=== PATIENT | female | born 1980 | race Caucasian/White ===

== ENCOUNTER 2019-03-27 19:44 | Emergency (ER) | payer SELFPAY ==
[~2019-03-27] VITALS: Ht 165.1 cm; Wt 72.6 kg
[2019-03-27 20:22] LABS: BASOPHILS ABSOLUTE AUTO 0.08 K/mm3 (0.00-0.23); BASOPHILS PERCENT AUTO 1 % (0-2); EOSINOPHILS ABSOLUTE AUTO 0.37 K/mm3 (0.00-0.68); EOSINOPHILS PERCENT AUTO 4 % (0-6); Hematocrit 37.8 % (33.0-51.0); Hemoglobin 12.2 g/dL (11.5-16.0); IMMATURE GRAN ABSOLUTE AUTO 0.02 K/mm3 (0.00-0.10); IMMATURE GRAN PERCENT AUTO 0 % (0-1); LYMPHOCYTES ABSOLUTE AUTO 3.29 K/mm3 (0.84-5.20); LYMPHOCYTES PERCENT AUTO 31 % (21-46); MONOCYTES ABSOLUTE AUTO 0.85 K/mm3 (0.16-1.47); MONOCYTES PERCENT AUTO 8 % (4-13); Mean Corpuscular HGB 26.5 pg (26.0-34.0); Mean Corpuscular HGB Conc 32.3 g/dL (31.5-36.5); Mean Corpuscular Volume 82 fL (80-100); Mean Platelet Volume 9.5 fL (9.1-12.4); NEUTROPHILS ABSOLUTE AUTO 5.91 K/mm3 (1.96-9.15); NEUTROPHILS PERCENT AUTO 56 % (41-73); Platelet Count 304 K/mm3 (150-400); RDW Coefficient Variation 12.9 % (11.7-14.2); RDW Standard Deviation 38.5 fL (35.1-46.3); White Blood Cell Count 10.52 K/mm3 (4.00-11.30)
[2019-03-27 20:47] LABS: Alanine Aminotransfer (ALT/SGP 23 U/L (12-78); Albumin, Blood 3.3 g/dL (3.4-5.0); Albumin/Globulin Ratio 0.9 (0.8-1.8); Alk Phos 64 U/L (50-136); Anion Gap 6 mmol/L (6-16); Aspartate Aminotrans (AST/SGOT 13 U/L (12-37); Bilirubin, Total 0.2 mg/dL (0.1-1.0); Blood Urea Nitrogen 8 mg/dL (8-24); Bun/Creatinine Ratio 12.9 (12.0-20.0); CO2, Blood 29 mmol/L (21-32); Calcium, Blood 8.6 mg/dL (8.5-10.1); Chloride, Blood 104 mmol/L (98-108); Creatinine, Blood 0.62 mg/dL (0.40-1.00); Globulin, Blood 3.8 g/dL (2.2-4.0); Glomerular Filtration Rate >60 (60-); Glucose, Blood 125 mg/dL (70-99); Potassium, Blood 4.2 mmol/L (3.5-5.5); Sodium, Blood 139 mmol/L (136-145); Total Protein, Blood 7.1 g/dL (6.4-8.2)
[2019-03-27] MEDS ORDERED: IBUP600 PO (22:52)
[2019-03-27] MEDS ORDERED: Augmentin 875-1 EACH PO (22:52)
== END 2019-03-28 00:26 | disposition home or self-care (01) ==
LOC: ER 19:44
PROVIDERS: Emergency Medicine
DX: S62.615A Displaced fracture of proximal phalanx of left ring finger, initial encounter for closed fracture (principal); S62.366A Nondisplaced fracture of neck of fifth metacarpal bone, right hand, initial encounter for closed fracture; F17.200 Nicotine dependence, unspecified, uncomplicated; W54.0XXA Bitten by dog, initial encounter
CPT/HCPCS: 29125; 36415; 73120; 73130; 80053; 83605; 85025; 87040; 99283-25; A9270

== ENCOUNTER → 2022-01-12 | Outpatient (CLI) | payer OTHER ==
[~2022-01-12] MED LIST: Augmentin 875-1 EACH PO; IBUP600 PO
[2022-01-15 01:07] LABS: CHLAMYDIA TRACHOMATIS, NAA Negative (Negative)
== END | disposition home or self-care (01) ==
LOC: LAB SHORT 14:37
PROVIDERS: Advanced Practice Midwife
DX: Z11.3 Encounter for screening for infections with a predominantly sexual mode of transmission (principal); O09.93 Supervision of high risk pregnancy, unspecified, third trimester
CPT/HCPCS: 87081; 87086; 87150; 87491; 87591

== ENCOUNTER 2022-02-09 20:22 | Inpatient (IN) | payer OTHER ==
[~2022-02-09] VITALS: Ht 165.1 cm; Wt 92.0 kg
[2022-02-10 00:06] LABS: Hematocrit 28.5 % (33.0-51.0); Hemoglobin 9.1 g/dL (11.5-16.0); Mean Corpuscular HGB 24.9 pg (26.0-34.0); Mean Corpuscular HGB Conc 31.9 g/dL (31.5-36.5); Mean Corpuscular Volume 78 fL (80-100); Mean Platelet Volume 11.2 fL (9.1-12.4); Platelet Count 294 K/mm3 (150-400); RDW Coefficient Variation 14.6 % (11.7-14.2); RDW Standard Deviation 41.5 fL (35.1-46.3); Red Blood Cell Count 3.65 M/mm3 (3.80-5.20)
[2022-02-10 00:08] LABS: BASOPHILS ABSOLUTE AUTO 0.05 K/mm3 (0.00-0.23); BASOPHILS PERCENT AUTO 0 % (0-2); EOSINOPHILS ABSOLUTE AUTO 0.31 K/mm3 (0.00-0.68); EOSINOPHILS PERCENT AUTO 3 % (0-6); IMMATURE GRAN ABSOLUTE AUTO 0.05 K/mm3 (0.00-0.10); IMMATURE GRAN PERCENT AUTO 0 % (0-1); LYMPHOCYTES ABSOLUTE AUTO 3.37 K/mm3 (0.84-5.20); LYMPHOCYTES PERCENT AUTO 29 % (21-46); MONOCYTES ABSOLUTE AUTO 0.81 K/mm3 (0.16-1.47); MONOCYTES PERCENT AUTO 7 % (4-13); NEUTROPHILS ABSOLUTE AUTO 6.94 K/mm3 (1.96-9.15); NEUTROPHILS PERCENT AUTO 60 % (41-73); White Blood Cell Count 11.53 K/mm3 (4.00-11.30)
--- NOTE | 2022-02-10 12:56 | NUR ---
02/10/22 1256 Carol Wright VIABLE MALE BORN 1227; WT 3350 GMS 7LBS [id number]; LENGTH 20IN; HEAD 14 IN; CHEST 13 IN; CORD BLOOD COLLECTED SENT WITH Rach LOPEZ RN.
--- NOTE | 2022-02-10 17:50 | NUR ---
LATE NOTE ENTRY: DR. NOWAK CALLED AND NOTIFIED OF PATIENTS' POOR PAIN CONTROL. PATIENT DID NOT WANT TO TAKE PAIN MEDICATION DUE TO . MEDICATION EDUCATION GIVEN TO PATIENT ON INTRODUCTION TO THE BREAST MILK AND ALSO ABOUT STAYING ON TOP OF PAIN CONTROL. PT DOES NOT WANT NB TO CRY. NB STARTED CRYING AND PT JUMPED UP ONTO HER KNEES TO MACHINE BILLER NB. PT STRONGLY URGED TO CALL FOR HELP AND NOT MAKE SUDDENT MOVEMENTS LIKE THAT. WHEN RN OUT OF ROOM, PT PROCEEDED TO GET TO HER KNEES AGAIN TO MACHINE BILLER NB OUT OF OPEN CRIB. PT ALSO CONTINUE TO TAKE OFF HER BINDER AND REPLACE IT HERSELF. PT ENCOURAGED TO ALLOW STAFF TO ASSIST WITH PLACING BINDER CORRECTLY. PT SHOWING SIGNS OF MAJOR ANXIETY. PT'S PAIN WAS ALSO OUT OF CONTROL AFTER ALL THE ACTIVITY. SHE DID ALLOW RN TO GIVE 1 G TYLENOL AND 10MG JAKE PO BUT WITH ALL THE ACTIVITY, PAIN IS NOT CONTROLLED. DR. NOWAK NOTIFIED OF ALL OF THE ABOVE AND REQUEST FOR WAITER/WAITRESS TAVERN PUMP. DR. NOWAK AGREED WAITER/WAITRESS TAVERN WOULD BE BENEFICIAL. WAITER/WAITRESS TAVERN ORDERS PLACED BY DR. ARRIAZA EXPLAINED HOW TO USE WAITER/WAITRESS TAVERN PUMP AND ENCOURAGED TO CALL FOR HELP WITH ASSISTING PT HANDING NB TO PT.
--- NOTE | 2022-02-11 01:46 | NUR ---
0230 [facility]PS called due to late care. They will call unit during the day.
--- NOTE | 2022-02-11 05:54 | NUR ---
0430 Patient refused vital signs 0550 Patient refused lab draw
[2022-02-11 14:19] LABS: BASOPHILS ABSOLUTE AUTO 0.05 K/mm3 (0.00-0.23); BASOPHILS PERCENT AUTO 0 % (0-2); EOSINOPHILS ABSOLUTE AUTO 0.16 K/mm3 (0.00-0.68); EOSINOPHILS PERCENT AUTO 1 % (0-6); Hematocrit 25.9 % (33.0-51.0); Hemoglobin 8.2 g/dL (11.5-16.0); IMMATURE GRAN ABSOLUTE AUTO 0.08 K/mm3 (0.00-0.10); IMMATURE GRAN PERCENT AUTO 1 % (0-1); LYMPHOCYTES ABSOLUTE AUTO 3.94 K/mm3 (0.84-5.20); LYMPHOCYTES PERCENT AUTO 27 % (21-46); MONOCYTES PERCENT AUTO 5 % (4-13); Mean Corpuscular HGB 25.1 pg (26.0-34.0); Mean Corpuscular HGB Conc 31.7 g/dL (31.5-36.5); Mean Corpuscular Volume 79 fL (80-100); Mean Platelet Volume 11.1 fL (9.1-12.4); NEUTROPHILS ABSOLUTE AUTO 9.84 K/mm3 (1.96-9.15); NEUTROPHILS PERCENT AUTO 66 % (41-73); Platelet Count 369 K/mm3 (150-400); RDW Coefficient Variation 14.7 % (11.7-14.2); RDW Standard Deviation 42.3 fL (35.1-46.3); Red Blood Cell Count 3.27 M/mm3 (3.80-5.20); White Blood Cell Count 14.87 K/mm3 (4.00-11.30)
[2022-02-12] MEDS ORDERED: PRENATAL TABLE1 EAC2 PO (11:28)
[2022-02-12] MEDS ORDERED: IBUP800 PO (11:28)
--- NOTE | 2022-02-14 13:28 | NUR ---
PT HAS NOT CAME TO [facility] FOR SCHEDULED PPFU. CALLED PHONE NUMBER LISTED, MALE ANSWERED PHONE AND STATES [facility] WOULD HAVE TO CALL BACK, RN GAVE MALE DIRECT PHONE NUMBER.
--- NOTE | 2022-02-15 11:48 | NUR ---
PT DID NOT COME TO SCHEDULED PPFU ON 02/14, RN CALLED AND SPOKE WITH PT AND RESCHEDULED FOR TODAY (02/15) AT 1100 AND PT DID NOT COME TO APPOINTMENT. RN CALLED PT AND PHONE WENT TO [employer] AND MAILBOX WAS FULL. [facility] NOTIFIED OF MULTIPLE MISSED APPOINTMENTS. RN SPOKE WITH NAMITA SAMPSON W/ CPS, REPORT FILED, REPORT NUMBER [id number].
--- NOTE | 2022-02-15 12:02 | NUR ---
DR MORAN'S OFFICE NOTIFED OF MISSED PPFU APPOINTMENTS.
== END 2022-02-12 15:15 | disposition home or self-care (01) | DRG 788 ==
LOC: OBS 20:22 → BC 20:25 → OBS 20:33 → BC 20:35
PROVIDERS: Obstetrics & Gynecology; ADMIT Advanced Practice Midwife
PROC: 3E033VJ Introduction of Other Hormone into Peripheral Vein, Percutaneous Approach (ICD-10-PCS; 2022-02-09)
PROC: 3E0P7VZ Introduction of Hormone into Female Reproductive, Via Natural or Artificial Opening (ICD-10-PCS; 2022-02-09)
PROC: 10D00Z1 Extraction of Products of Conception, Low, Open Approach (ICD-10-PCS; principal; 2022-02-10 10:45)
DX: O76 Abnormality in fetal heart rate and rhythm complicating labor and delivery (principal); O48.0 Post-term pregnancy; O99.02 Anemia complicating childbirth; O99.824 Streptococcus B carrier state complicating childbirth; Z67.20 Type B blood, Rh positive; Z37.0 Single live birth; Z79.2 Long term (current) use of antibiotics; Z3A.41 41 weeks gestation of pregnancy; O77.0 Labor and delivery complicated by meconium in amniotic fluid
CPT/HCPCS: 36415; 85025; 86850; 86900; 86901; A9270; J0290; J0690; J1885; J2210; J2550; J2590; J2765; J2916; J3010; J7120